=== PATIENT | female | born 1925 | race Caucasian/White ===

== ENCOUNTER 2017-03-31 16:29 | Inpatient (IN) | payer OTHER, BC ==
[~2017-03-31] VITALS: Ht 165.1 cm; Wt 47.6 kg
--- NOTE | ~2017-03-31 | EKG ---
[place] [address] [address] [facility] [employer] [place] [address] ELECTROCARDIOGRAM REPORT Name: GRANT DE LA PAZ Room #: 429-P [facility] IN ..#: [id number] Admission: 03/31/17 Attend Phys: Neri Ray MD Discharge: 04/01/17 Date of : [birth year] Report #: [id number] THIS REPORT FOR: //name// [facility] ED Test Date: 2017-03-31 Test Time: 17:00:46 Pat Name: GRANT DE LA PAZ Department: Room: [facility] Gender: F Director Executive Communications: jagjit : [id number] Requested By: Wilfredo Pineda Order Number: [id number] MD: Facundo Stover Measurements Intervals [place] Rate: 74 P: 101 NC: 185 QRS: 63 QRSD: 88 T: 17 QT: 401 QTc: 445 Interpretive Statements Sinus rhythm Multiple premature complexes, vent & supraven Probable anterior infarct, old Compared to ECG 07/19/2015 10:17:16 Premature ventricular complexes are now present Electronically Signed On 04-02-2017 8:35:17 CDT by Facundo Stover [email or web address] <ELECTRONICALLY SIGNED> By: Facundo Stover MD, [facility] 04/02/17 0835 1700 170 Facundo Stover MD, [facility] /EPI
--- NOTE | ~2017-03-31 | DSS ---
[facility] [place] [address] SHORT STAY SUMMARY Name: GRANT DE LA PAZ Room #: 429-P [facility] IN M.R.#: [id number] Admission: 03/31/17 Attend Phys: Neri Ray MD Discharge: 04/01/17 Date of : [birth year] Report #: [id number] THIS REPORT FOR: //name// CC: Neri Ford HISTORY OF PRESENT ILLNESS: The patient is an 89-year-old white female, who has had progressive dementia following a head injury due to a fall on concrete steps. She was moved just several months ago to assisted living due to repeated falls and more confusion. Unfortunately, she has continued to have falls and had an unwitnessed fall in her bathroom, striking her face, and requiring suturing. She was brought to the emergency room. She was kept overnight for observation. She is confused this morning. She knows she fell. She does not know how she fell. She thinks she fell last week as well, but at the [facility], where she had her head injury, but this was really a couple of years ago. Her workup in the emergency room was negative for UTI. She did have elevated white count of 17.7. Normal chemistry. Chest x-ray and CT head was no acute changes. CT of her spine was no acute changes, as well as her shoulder, which was having pain. PHYSICAL EXAMINATION: Her vital signs, her blood pressures have ranged from 118-172 systolics and 82-94 diastolics. Pulse is normal and regular. She has been afebrile. Wound of her lip is crusted. She will need to follow up in a week to have sutures removed. FINAL DIAGNOSES: 1. Fall. 2. Lacerations. 3. Shoulder pain. PLAN: Follow up with Dr. Ford in the next 2 weeks and discuss with son, advancing her from assisted living to higher level of care due to confusion and falling. <ELECTRONICALLY SIGNED> By: Carolyn Ford MD 04/02/17 0748 [id number] Carolyn Ford MD /nt
[~2017-03-31 16:29] MED LIST: ASPIRIN EC81 M1 PO; ASPIRIN325 PO; SIMVASTATIN20 MG PO
[2017-03-31 16:30] VITALS: BP 118/82
[2017-03-31 17:23] LABS: ABSOLUTE NEUTROPHILS 8.5 thou/uL (1.4-8.2); BASOPHILS 0.8 % (0.0-2.0); EOSINOPHILS 0.6 % (0.0-3.0); HEMATOCRIT 40.3 % (37.0-47.0); HEMOGLOBIN 13.5 gm/dL (12.0-15.0); MANUAL DIFF NO; MCH 30.2 pg (26.0-34.0); MCHC 33.6 g/dL (28.0-37.0); MCV 89.8 fL (80.0-100.0); MONOCYTES 8.7 % (1.0-8.0); POLYS 75.9 % (36.0-66.0); RBC 4.49 mil/uL (4.20-5.00); RDW 15.6 % (10.5-14.5); WBC 17.7 thou/uL (4.0-11.0)
[2017-03-31 17:38] LABS: ANION GAP 10 mmol/L (7-16); BUN 18 mg/dL (7-18); CALCIUM 9.3 mg/dL (8.5-10.1); CHLORIDE 106 mmol/L (98-107); CO2 26 mmol/L (21-32); GLUCOSE 101 mg/dL (74-106); POTASSIUM 4.2 mmol/L (3.5-5.1); SODIUM 142 mmol/L (136-145)
[2017-03-31 17:43] LABS: TROPONIN-I < 0.04 ng/mL (<0.04-0.07)
[2017-03-31 17:50] LABS: PLATELET COUNT 228 thou/uL (150-400)
[2017-03-31 19:23] LABS: URINE BILIRUBIN NEGATIVE (Negative); URINE BLOOD TRACE (Negative); URINE COLOR YELLOW; URINE GLUCOSE-RANDOM* NEGATIVE (Negative); URINE KETONES 1+ (Negative); URINE NITRITE NEGATIVE (Negative); URINE PROTEIN (DIPSTICK) TRACE (Negative); URINE UROBILINOGEN 0.2 E.U./dl (0.2-1.0)
[2017-03-31 22:21] VITALS: BP 142/85
[2017-03-31 23:07] VITALS: BP 178/91
[2017-04-01 04:10] VITALS: BP 156/81
[2017-04-01 07:35] VITALS: BP 172/88
[2017-04-01 08:05] VITALS: BP 172/88
== END 2017-04-01 11:35 | DRG 605 ==
LOC: ER 16:29 → EDBD 20:26 → EROBS 20:26 → 4E 20:26
PROVIDERS: Nurse Practitioner
PROC: 0CQ0XZZ Repair Upper Lip, External Approach (ICD-10-PCS; principal; 2017-03-31)
DX: S01.81XA Laceration without foreign body of other part of head, initial encounter (principal); F03.90 Unspecified dementia, unspecified severity, without behavioral disturbance, psychotic disturbance, mood disturbance, and anxiety; W01.0XXA Fall on same level from slipping, tripping and stumbling without subsequent striking against object, initial encounter; Z96.651 Presence of right artificial knee joint; Z98.42 Cataract extraction status, left eye; Z98.41 Cataract extraction status, right eye; Z79.82 Long term (current) use of aspirin; Y93.89 Activity, other specified; Y92.89 Other specified places as the place of occurrence of the external cause; Y99.8 Other external cause status
CPT/HCPCS: 10084